=== PATIENT | male | born 1980 | race Caucasian/White ===

== ENCOUNTER 2017-05-02 23:40 | Emergency (ER) | payer OTHER ==
[~2017-05-02] VITALS: Ht 175.3 cm; Wt 63.1 kg
[~2017-05-02 23:40] MED LIST: AMOXICILLIN500 M1 PO; CLINDAMYCIN HC300 MG PO; FLEXERIL10 MG PO; LEXAPRO10 MG PO; MOTRIN800 MG PO; NAPROSYN500 MG PO; NOHOMEMEDS; NORCO 5/3251 TABLET PO; Protonix PO; ULTRAM50 MG PO
[2017-05-03] MEDS ORDERED: ULTRAM50 MG PO (00:17)
[2017-05-03] MEDS ORDERED: PEN-VEE K,VEET500 MG PO (00:17)
[2017-05-03 00:38] VITALS: BP 155/93
== END 2017-05-03 00:51 | disposition home or self-care (01) ==
LOC: EME 23:40
DX: K08.89 Other specified disorders of teeth and supporting structures (principal); K02.9 Dental caries, unspecified; F17.200 Nicotine dependence, unspecified, uncomplicated
CPT/HCPCS: 99281; 99283